=== PATIENT | female | born 1975 | race Caucasian/White ===

== ENCOUNTER 2018-05-30 16:27 | Emergency (ER) | payer MEDICARE ==
[~2018-05-30] VITALS: Ht 154.9 cm; Wt 59.4 kg
[2018-05-30 16:45] VITALS: BP 166/103
--- NOTE | 2018-05-30 17:25 | PHYS DOC ---
Past Medical History Past Medical History: Migraines Additional Past Medical Histor: trigeminal nueralgia, ulcerative colitis, osteoperosis, clot (AIDA WALTON APRN) Past Surgical History: Cholecystectomy Additional Past Surgical Histo: partial hysterectomy, R knee, carpal tunnel (AIDA WALTON APRN) Alcohol Use: None Drug Use: None (AIDA WALTON APRN) Adult General Chief Complaint Chief Complaint: SHOULDER INJURY HPI HPI Patient is a 43 year old female who presents to the ER with complaints of left shoulder pain for the last week. Pt states that she was at work last week when she slipped and fell on the ice in the parking lot and landed on her left shoulder. Pt reports limited ROM anteriorly to 90, and laterally to 90. She denies any numbness, or tingling states at times she has experienced sharp pain with movement. Pt reports that she is currently taking a high dose of aspirin for a recent blood clot. She has tried muscle rubs and tylenol with no relief of her symptoms. Currently, she rates her pain a 7/10 on the pain scale. PT also reports muscular pain in her left lateral thigh, she denies any bony tenderness of left femur, left pelvis, or left hip. (AIDA WALTON APRN) Review of Systems Review of Systems Constitutional: Denies fever or chills [] Musculoskeletal: See HPI Integument: Reports bruising to left lateral thigh and posterior left upper arm Neurologic: Denies headache, focal weakness or sensory changes [] (AIDA WALTON APRN) Allergies Allergies Allergies Coded Allergies Type Severity Reaction Last Updated Verified clindamycin Allergy Mild rash 05/30/18 Yes Sulfa (Sulfonamide Antibiotics) Allergy Unknown rash 05/30/18 Yes (GREGORY BAY DO) Physical Exam Physical Exam Constitutional: Well developed, well nourished, no acute distress, non-toxic appearance. [] HENT: Normocephalic, atraumatic, bilateral external ears normal, nose normal. [] Eyes: conjunctiva normal, no discharge. [] Neck: Normal range of motion, no stridor. [] Skin: Warm, dry, no erythema, no rash. [] Extremities: L posterior shoulder TTP, no cyanosis, no clubbing, limited ROM to 90 anteriorly and laterally of the left shoulder, no edema; lateral left thigh muscular TTP; no bony tenderness of L hip, L pelvis, or L femur [] Neurologic: Alert and oriented X 3, normal motor function, normal sensory function, no focal deficits noted. [] Psychologic: Affect normal, judgement normal, mood normal. [] (AIDA WALTON APRN) Current Patient Data Vital Signs Vital Signs Date Time Temp Pulse Resp B/P (MAP) Pulse Ox O2 Delivery O2 Flow Rate FiO2 05/30/18 16:45 98.3 87 16 166/103 (124) 98 Room Air 98.3 (GREGORY BAY DO) EKG EKG [] (AIDA WALTON APRN) Radiology/Procedures Radiology/Procedures left shoulder x-ray negative for acute fx or dislocation, read by Dr. 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 PAIN HAS GOTTEN WORSE SINCE THE FALL. POSTERIOR SHOULDER PAIN UP NECK AND RADIATING DOWN ARM. TECHNIQUE: 3 views of the left shoulder COMPARISON:None FINDINGS: No acute fracture or dislocation. No significant arthritic process. Visualized left lung is clear. IMPRESSION: As above. Electronically signed by: Jase Hoover DO (05/30/2018 6:54 PM) [facility] (GREGORY BAY DO) Course & Med Decision Making Course & Med Decision Making Pertinent Labs and Imaging studies reviewed. (See chart for details) Dx: L shoulder strain, L shoulder pain X-ray L shoulder negative for acute findings. Pt referred to Dr. Mane, prescription for hydrocodone 5/325 mg tablets #10 written. Rest, ice, affected area, activity as tolerated. Return to ER if sx worsen. Patient verbalized an understanding of home care, medications, follow-up, and return to ED instructions and was in agreement with the plan of care. [] (AIDA WALTON APRN) Dragon Disclaimer Dragon Disclaimer This electronic medical record was generated, in whole or in part, using a voice recognition dictation system. (AIDA WALTON APRN) Departure Departure Impression: Primary Impression: Left shoulder pain Additional Impression: Left shoulder strain Disposition: HOME, SELF-CARE Condition: STABLE Referrals: AJYME MANE MD Patient Instructions: Shoulder Pain, [id number], Shoulder Sprain Additional Instructions: Fill prescription(s) and use as directed. Recommend application of ice and rest of affected extremity, activity as tolerated. Follow up with Dr. Mane if symptoms persist, return to the ER if your symptoms worsen. Scripts Hydrocodone/Acetaminophen (Hydrocodone-Acetamin 5-325 mg) 1 Each Tablet 1 EACH PO QIDPRN PRN for PAIN, #10 TAB 0 Refills Prov: AIDA WALTON APRN 05/30/18 Attending Signature Attending Signature I have reviewed the PA/IMAGER's note and plan of care. I was available for consultation as needed during the patient's visit in the emergency department. I agree with the clinical impression, plan, and disposition. (GREGORY BAY DO) Problem Qualifiers Primary Impression: Left shoulder pain Chronicity: acute Qualified Codes: M25.512 - Pain in left shoulder Additional Impression: Left shoulder strain Encounter type: initial encounter Qualified Codes: S46.912A - Strain of unspecified muscle, fascia and tendon at shoulder and upper arm level, left arm , initial encounter AIDA WALTON APRN May 30, 2018 17:25 GREGORY BAY DO May 31, 2018 00:45
[2018-05-30] MEDS ORDERED: HYDR-2759 PO (18:32)
--- NOTE | 2018-05-30 18:58 | RAD ---
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 PAIN HAS GOTTEN WORSE SINCE THE FALL. POSTERIOR SHOULDER PAIN UP NECK AND RADIATING DOWN ARM. TECHNIQUE: 3 views of the left shoulder COMPARISON:None FINDINGS: No acute fracture or dislocation. No significant arthritic process. Visualized left lung is clear. IMPRESSION: As above. Electronically signed by: Jase Hoover DO (05/30/2018 6:54 PM) [facility]
== END 2018-05-30 18:41 | disposition home or self-care (01) ==
LOC: ER 16:27
DX: S46.912A Strain of unspecified muscle, fascia and tendon at shoulder and upper arm level, left arm, initial encounter (principal); M25.512 Pain in left shoulder; G43.909 Migraine, unspecified, not intractable, without status migrainosus; Z88.1 Allergy status to other antibiotic agents; Z88.2 Allergy status to sulfonamides; W00.2XXA Other fall from one level to another due to ice and snow, initial encounter; Y93.89 Activity, other specified; Y92.481 Parking lot as the place of occurrence of the external cause; Y99.8 Other external cause status
CPT/HCPCS: 73030; 99283